=== PATIENT | male | born 1970 | race Caucasian/White ===

== ENCOUNTER 2017-02-23 11:45 | Emergency (ER) | payer SELFPAY ==
[~2017-02-23] VITALS: Ht 177.8 cm; Wt 68.0 kg
[~2017-02-23 11:45] MED LIST: DICL-86 PO; Z.0.NO CURRENT MEDS
[2017-02-23 11:46] VITALS: BP 137/84; PULSE 102; RESP 20; TEMP 97.7; O2SAT 98
[2017-02-23 11:51] VITALS: BP 133/91; PULSE 103; RESP 16; O2SAT 99
--- NOTE | 2017-02-23 11:51 | PD ---
HPI . lower jaw dental pain for years worse for 1 week Chief Complaint: Facial Pain or Swelling Time Seen by Provider: 11:50 Travel History International Travel<30 days: No Contact w/Intl Traveler<30days: No Traveled to known affect area: No History of Present Illness HPI 46-year-old male with no signal past medical history here with complaints of dental pain on the lower left side of his jaw for several years, worse over the past week. Patient tells me that he knows he has very bad teeth and needs to see a dentist, however due to financial constraints he is unable to do so. He tells me that his dental issues or hereditary. He reports chronic lower jaw pain for over 3 years. It is been significantly worse for the past week he rates the pain as 5/10 without any further radiation. He does have some lower left-sided jaw swelling and decided to come into the emergency department for evaluation. He was hoping that he'll be able to get dental care. He denies any fever or chills. He has no other complaints. [facility] Social History Alcohol Use: Yes Tobacco Use: Yes Allergies-Medications (Allergen,Severity, Reaction): Coded Allergies: No Known Allergies (Verified , 02/23/17) Reported Meds & Prescriptions Reported Meds & Active Scripts Active Ibuprofen 800 Mg Tab 800 Mg PO TID Augmentin (Amoxicillin-Clavulanate) 875-125 Mg Tab 1 Tab PO BID 10 Days Review of Systems General / Constitutional: No: Fever Eyes: No: Visual changes HENT: Positive: Dental Difficulties, No: Headaches Cardiovascular: No: Chest Pain or Discomfort Respiratory: No: Shortness of Breath Gastrointestinal: No: Abdominal Pain Genitourinary: No: Dysuria Musculoskeletal: No: Pain Skin: No Rash Neurologic: No: Weakness Psychiatric: No: Depression Endocrine: No: Polydipsia Hematologic/Lymphatic: No: Easy Bruising Physical Exam Narrative GENERAL: AAO x 3, no acute distress, Well-nourished, well-developed patient. SKIN: Warm and dry. No visible rashes or bruising. HEAD: Normocephalic and atraumatic.RIght lower jaw with small 3 cm well circumscribed what appears to be a lipoma (soft, mobile and nontender) EYES: No scleral icterus. No injection or drainage. EOM intact, PERRLA ENT: No nasal drainage noted. Mucous membranes pink. Airway patent. # 17, 19, 20 all with dental caries and decaying, no definitive abscess or fluid collection, there is some soft tissue swelling of left check without induration or fluctuance. NECK: Supple, trachea midline. No JVD. No lymphadenopathy CARDIOVASCULAR: Regular rate and rhythm without murmurs, gallops, or rubs. RESPIRATORY: Breath sounds equally diminished bilaterally. No wheezing, rhonchi or rails. GASTROINTESTINAL: Visual inspection normal EXTREMITIES: No cyanosis or edema. BACK: Nontender without obvious deformity. No CVA tenderness. PSYCH: AAO x 3, normal affect. Data Data Last Documented VS Vital Signs Date Time Temp Pulse Resp B/P Pulse Ox O2 Delivery O2 Flow Rate FiO2 02/23/17 11:51 103 16 133/91 99 Room Air 02/23/17 11:46 97.7 MDM Medical Decision Making Medical Screen Exam Complete: Yes Emergency Medical Condition: Yes Medical Record Reviewed: Yes Differential Diagnosis Dentalgia, dental caries, less likely oral abscess Narrative Course 46-year-old male here with acute on chronic dental issues. I've done and examination the presence of Frank PHILLIPS, there is no evidence of oral abscess or fluid collection. I've explained to patient that he has multiple decaying teeth and will need to have extractions. I advised him to look into [facility] resources for dental extractions. I have provided him with antibiotics as this could represent an early oral abscess formation. He can continue to use ice and ibuprofen. Patient verbalized understanding of instructions, questions were answered, and thanked me for their care. I advised them if their condition worsens, please return to the nearest emergency room for further care. Diagnosis Primary Impression: Dentalgia Additional Impression: Dental caries Referrals: Dentist Patient Instructions: General Instructions Additional Instructions: Please see a dentist this week. You will need to have multiple teeth extracted. Please return to emergency department if your symptoms return or worsen. Follow up with your primary care provider. Take medications as prescribed. Med/Other Pt SpecificInfo: Prescription(s) given Scripts Ibuprofen 800 Mg Pvg770 Mg PO TID #21 TAB Prov:Colton Mario MD 02/23/17 Amoxicillin-Clavulanate (Augmentin)875-125 Mg Tab1 Tab PO BID 10 Days Ref 0 Prov:Colton Mario MD 02/23/17 Disposition: 01 DISCHARGE HOME Condition: Stable Mangali,[place] PA February 23, 2017 11:51
[2017-02-23] MEDS ORDERED: AUGM875T3 PO (11:58)
[2017-02-23] MEDS ORDERED: IBUP800T23 PO (11:58)
== END 2017-02-23 12:13 | disposition home or self-care (01) ==
LOC: NEPD 11:45
DX: K02.9 Dental caries, unspecified (principal); Z72.0 Tobacco use
CPT/HCPCS: 99283

== ENCOUNTER 2017-07-17 13:44 | Emergency (ER) | payer OTHER ==
[~2017-07-17] VITALS: Ht 177.8 cm; Wt 66.0 kg
[~2017-07-17 13:44] MED LIST changes: +AUGM875T3 PO; -DICL-86 PO; +IBUP800T23 PO; -Z.0.NO CURRENT MEDS
[2017-07-17 13:49] VITALS: BP 126/76; PULSE 96; RESP 18; TEMP 99.2; O2SAT 98
[2017-07-17] MEDS ORDERED: CLINDAMYCIN PHOS 600 MG/4 ML VIAL IM ONE (15:30)
[2017-07-17] MEDS ORDERED: TETANUS/DIPHTHERIA TOXOID ADULT 0.5 ML VIAL IM ONE (15:30)
[2017-07-17] MEDS ORDERED: SULFAMETHOXAZOLE-TRIMETHOPRIM DS 800-160 MG TAB PO ONE (15:30)
--- NOTE | 2017-07-17 15:39 | PD ---
HPI Chief Complaint: Foreign Body Time Seen by Provider: 15:13 Travel History International Travel<30 days: No Contact w/Intl Traveler<30days: No Traveled to known affect area: No History of Present Illness HPI 47-year-old male presents to the emergency room for evaluation of right foot pain and redness after stepping on a nail 2 days ago. Patient states it went through his shoe. He pulled it out and continued about his day. When he got home he rinsed it with hydrogen peroxide and applied a Band-Aid. States the following morning when he woke up it was bleeding but he went to work anyway. States he noticed increasing redness, warmth, and he came to the emergency room at the recommendation of his friends. He denies chronic medical conditions or daily medications. No history of diabetes. Unknown last tetanus. Denies fever , chills, nausea, and vomiting. PFSH Social History Alcohol Use: Yes (OCCASIONALLY) Tobacco Use: Yes (1 PPD) Substance Use: Yes (MARIJUANA) Allergies-Medications (Allergen,Severity, Reaction): Coded Allergies: No Known Allergies (Verified , 02/23/17) Reported Meds & Prescriptions Reported Meds & Active Scripts Active Ibuprofen 800 Mg Tab 800 Mg PO TID Augmentin (Amoxicillin-Clavulanate) 875-125 Mg Tab 1 Tab PO BID 10 Days Review of Systems Except as stated in HPI: all other systems reviewed are Neg Physical Exam Narrative GENERAL: Well-nourished, well-developed male in no acute distress. Afebrile. Ambulatory. SKIN: Focused skin assessment warm/dry. There is a 5 cm area of erythema in the medial arch of the right foot. Mild induration surrounding a puncture wound on the plantar region. Wound is extremely tender to palpation. No significant purulent drainage. There is lymphangitis extending retirement up the lower leg. HEAD: Normocephalic. EYES: No scleral icterus. No injection or drainage. NECK: Supple, trachea midline. No JVD or lymphadenopathy. CARDIOVASCULAR: Regular rate and rhythm without murmurs, gallops, or rubs. RESPIRATORY: Breath sounds equal bilaterally. No accessory muscle use. MUSCULOSKELETAL: No cyanosis. Mild edema of the right foot. Limited range of motion of the foot secondary to pain. Data Data Last Documented VS Vital Signs Date Time Temp Pulse Resp B/P (MAP) Pulse Ox O2 Delivery O2 Flow Rate FiO2 07/17/17 13:49 99.2 96 18 126/76 (93) 98 Orders Orders Tetanus/Diphtheria Tox Adult (Tetanus/Di (07/17/17 15:30) Clindamycin Inj (Cleocin Inj) (07/17/17 15:30) Sulfamet-Trimeth Ds 800-160 Mg (Bactrim (07/17/17 15:30) MDM Medical Decision Making Medical Screen Exam Complete: Yes Emergency Medical Condition: Yes Medical Record Reviewed: Yes Differential Diagnosis Lymphangitis, cellulitis, abscess, puncture wound Narrative Course 47-year-old male presents to the emergency room for evaluation of a puncture wound to his right foot that occurred 2 days ago. Patient stepped on a isidro nail that went through his shoe. Denies systemic signs of infection. He is afebrile and well-appearing in the emergency room. There is a 5 cm area of induration and erythema surrounding the puncture wound with lymphangitis extending retirement up. Patient is otherwise healthy without chronic medical conditions or diabetes. Tetanus was updated. I spoke to my attending physician , Dr. Mario, who recommends IM clindamycin, Bactrim, and discharged with prescriptions for the same. Patient should return in 24-48 hours for recheck. He understands and agrees to plan. Diagnosis Primary Impression: Puncture wound of foot Qualified Codes: S91.331A - Puncture wound without foreign body, right foot, initial encounter Referrals: Development Expert Primary Care Physician Additional Instructions: Rest and drink plenty of fluids. Take Bactrim as directed, until gone. Take clindamycin as directed, until gone. Return in 24-48 hours for recheck. Follow up with a primary care physician. Return to emergency room for worsening symptoms, as discussed. Disposition: 01 DISCHARGE HOME Condition: Stable [place] Read Jul 17, 2017 15:39
[2017-07-17] MEDS ORDERED: CLIN1CAP6 PO (15:41)
[2017-07-17] MEDS ORDERED: BACT800T5 PO (15:41)
== END 2017-07-17 17:05 | disposition home or self-care (01) ==
LOC: NEPK 13:44
DX: S91.331A Puncture wound without foreign body, right foot, initial encounter (principal); W45.0XXA Nail entering through skin, initial encounter; Z23 Encounter for immunization
CPT/HCPCS: 90471; 90714; 96372; 99284; E0113